=== PATIENT | female | born 1980 | race Caucasian/White ===

== ENCOUNTER 2017-03-19 16:09 | Emergency (ER) | payer MEDICAID ==
[~2017-03-19] VITALS: Ht 152.4 cm; Wt 65.3 kg
[2017-03-19 16:15] VITALS: BP_SYST 125
--- NOTE | 2017-03-19 16:15 | NUR ---
Patient to ER bed 08 to gown for evaluation. Side rails up. Report recieved from LILIANE Lawrence.
--- NOTE | 2017-03-19 16:27 | NUR ---
TEAGAN ALICIA AT BEDSIDE FOR EVALUATION
--- NOTE | 2017-03-19 16:30 | NUR ---
Patient is A & O x4, skin is dry and warm. Patient reports that she has TMJ and has been grinding teeth, she states that develops sores on both sides of tongues now. Open white patchy lesions noted . Pain of 7/10. No other complaints/injuries per patient or as noted. Will continue to monitor.
--- NOTE | 2017-03-19 16:32 | NUR ---
Lela cameron in ED - 03/19/17 at 1659 by [email or web address] TEAGAN Oconnor at bedside.
[2017-03-19] MEDS ORDERED: HYDROcodone/ACETAMIN 5-325 MG TAB (NORCO/ VICODIN) PO ONE (16:45)
[2017-03-19 16:54] VITALS: BP_SYST 125
--- NOTE | 2017-03-19 16:54 | NUR ---
Patient given written and verbal discharge instructions and verbalizes understanding. ER MD discussed with patient the results and treatment provided. Patient in stable condition. ID arm band removed. Rx of Motrin and tramadol given. Patient educated on pain management and to follow up with PMD in 2 days. Pain Scale 2/10/ Opportunity for questions provided and answered.
== END 2017-03-19 16:54 | disposition home or self-care (01) ==
LOC: SED 16:09
DX: K14.6 Glossodynia (principal); Z88.8 Allergy status to other drugs, medicaments and biological substances
CPT/HCPCS: 81025; 99283